=== PATIENT | female | born 1930 | race Hispanic/Latino ===

== ENCOUNTER 2017-07-09 14:59 | Outpatient (CLI) | payer MEDICARE, MEDICAID ==
--- NOTE | 2017-07-09 17:46 | CT ---
CT HEAD WITHOUT CONTRAST: Date: 07/09/17 HISTORY: Chronic subdural hematoma. Follow-up surgery. There are no comparison studies available. FINDINGS: Postoperative changes are noted with scalp abbey seen over the left frontal bone with a bur hole in the left frontal bone. There is increased extra-axial CSF along both frontal lobes, which appears sy mmetric. This does appear to produce mild effacement of the anterior frontal lobe cortex bilaterally and suggests chronic subdural and/or hygroma accumulations. More superiorly, the right subdural colle ction is slightly larger, measured at 1.3 cm, whereas on the left measurement recorded at approximate ly 0.8 cm. No acute hemorrhage. Ventricles have normal size and position. IMPRESSION: Increased extra-axial CSF over frontal lobes bilaterally, slightly more prominent on the right sugges ting chronic subdural collections. Postoperative changes on the left noted. POS: [facility]
== END 2017-07-09 15:00 | disposition home or self-care (01) ==
LOC: TBSIIMAG 14:59
PROVIDERS: ATTEND Surgery
DX: I62.03 Nontraumatic chronic subdural hemorrhage (principal); Z98.890 Other specified postprocedural states
CPT/HCPCS: 70450

== ENCOUNTER 2017-08-06 13:58 | Outpatient (CLI) | payer MEDICARE, MEDICAID ==
--- NOTE | 2017-08-06 14:38 | CT ---
CT HEAD NONCONTRAST: Date: 08/06/17 COMPARISON: 07/09/17. INDICATION: Chronic subdural hematoma. FINDINGS: Prior extra-axial fluid collections have essentially resolved without a significant residua remaining . Left frontal bur hole is again seen, as is left parietal bur hole. Stable extra-axial density of th e posterior cranial fossa. No interval intracranial acute abnormality evident. Mild chronic microvasc ular ischemic disease present. IMPRESSION: No acute intracranial abnormality. POS: [facility]
== END 2017-08-06 13:59 | disposition home or self-care (01) ==
LOC: TBSIIMAG 13:58
PROVIDERS: ATTEND Surgery
DX: I62.03 Nontraumatic chronic subdural hemorrhage (principal)
CPT/HCPCS: 70450